=== PATIENT | male | born 2005 | race Caucasian/White ===

== ENCOUNTER 2025-06-12 18:15 | Emergency (ER) | payer MEDICAID, OTHER ==
[~2025-06-12] VITALS: Ht 182.9 cm; Wt 92.0 kg
[2025-06-12 18:29] VITALS: BP 128/69; PULSE 96; RESP 18; TEMP 37; O2SAT 98
[2025-06-12] MEDS: IBUPROFEN 600MG TABLET PO ONE (21:57)
[2025-06-12] MEDS ORDERED: IBUP-1455 MT (22:56)
== END 2025-06-12 23:02 | disposition home or self-care (01) ==
LOC: ER 18:15
DX: S40.012A Contusion of left shoulder, initial encounter (principal); V49.40XA Driver injured in collision with unspecified motor vehicles in traffic accident, initial encounter; Y93.89 Activity, other specified; Y92.89 Other specified places as the place of occurrence of the external cause; Y99.8 Other external cause status
CPT/HCPCS: 73030; 99283